=== PATIENT | male | born 1985 | race Caucasian/White ===

== ENCOUNTER 2018-09-26 09:46 | Outpatient (CLI) | payer MEDICAID, SELFPAY | END 2018-09-26 10:06 | PROVIDERS: Visit Provider Urology | DX: Z87.448 Personal history of other diseases of urinary system (principal) | CPT/HCPCS: 87077; 87086; 87186 ==

== ENCOUNTER 2024-01-28 16:31 | Emergency (ER) | payer SELFPAY ==
[2024-01-28] VITALS (27 sets, daily range): BP systolic 115–154; BP diastolic 79–112; PULSE 70–104; RESP 12–24; TEMP 37.2–37.6; O2SAT 97–99
--- NOTE | 2024-01-28 16:39 | W.ED.GENAD ---
Discharge Plan Disposition Patient Disposition: Home Condition: Stable Discharge Details Clinical Impression: Infected insect bite Primary Care Provider: None,None ED Provider: Dennis Silverman Home Meds and New Rx's Prescriptions: New doxycycline hyclate 100 mg tablet 100 mg PO BID 14 Days Qty: 28 0RF Discharge Instructions Instructions: Doxycycline (By mouth), Cellulitis (ED) Additional Instructions: You were seen in the emergency department for the infected bug bite on your right thigh, it is possibility that this is Lyme disease from a tick bite. We have sent a tick panel out should result in a number of days. Other than that it is an infected bug bite causing significant infection and I am placing on doxycycline. We loaded you on doxycycline this evening in the ER and provided you with 2 tablets to go, I have sent a further prescription for 2 more weeks to [facility] in [place]. If your Lyme test is positive you may need to continue for 21 or 28 days of antibiotics. Please use therapeutic dosing of Tylenol (acetamenophen) & Advil (ibuprofen) in an alternating fashion as follows: Take 1000mg of Tylenol every 6 hours without missing doses- that is 4 times per day. Retirement in between the Tylenol dosings, take 400-600mg of Advil also on a 6 hour schedule, that is also 4 times per day. The daily maximum dosing of Tylenol is 4000mg, and the daily maximum dosing of Advil is 2400mg. This is safe to do for weeks. Please note that some common cold medications & prescription pain medications may contain acetamenophen and you need to read OTC drug labels and factor that in to maximum daily dosings. We also took blood cultures to test for any infection in your bloodstream, if these result positive you will need to return for IV antibiotics. Please return for failure to improve, worsening symptoms like nausea vomiting or other body systems being affected. HPI General Date/Time Provider Initiated Documentation: 01/28/24 16:32. 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 Quality described as redness spreading outward around the bug bite, now having red streaking spreading up the groin, with radiation to mild fever, tingling distally, fatigue. Denies chest pain, denies knee swelling, denies nausea/vomiting, denies severe headache. Severity is described as moderate. Palliating factors include nothing specific attempted. Provoking factors include nothing specific. Patient not anticoagulated. Related Data Home Medications Medication Instructions Recorded Confirmed doxycycline hyclate 100 mg tablet 100 mg PO BID cellulitis 14 days 01/28/24 #28 tabs Previous Rx's Medication Instructions Recorded doxycycline hyclate 100 mg tablet 100 mg PO BID cellulitis 14 days 01/28/24 #28 tabs Allergies Allergy/AdvReac Type Severity Reaction Status Date / Time codeine AdvReac Mild Skin Rash Verified 01/28/24 16:38 General Stated Complaint: Cellulitis ERICK: 3 Review of Systems All systems reviewed & are unremarkable except as noted in HPI and below Exam Narrative Exam Narrative: GENERAL APPEARANCE: Well-nourished, non-toxic, awake and alert, atraumatic, no acute distress. SKIN: Warm, pink, dry, pinpoint macular bugbite 3 cm superior to R knee, circular erythema surrounding the bite about 8-10cm oval shaped with mild central clearing, no ecchymosis, +lymphadenitis spreading up medial thigh/groin, no knee swelling, no pain with passive ROM. HEAD: Normocephalic, atraumatic, normal hair distribution for gender/age. EYES: Pupils PERRLA, EOMs intact without nystagmus, normal conjunctiva, no exudates on lids/lashes. ENT: Nares patent, no circumoral cyanosis, no facial swelling NECK: Supple, trachea midline, painless cervical ROM. LUNGS/CHEST: Lungs CTA bilaterally, non-labored respirations, normal A/P diameter, symmetrical expansion, no chest wall deformity HEART (CV/PV): Regular rate and rhythm, tachycardic, no peripheral edema, no JVD. ABDOMEN: Soft, non-distended, no guarding. MSK: Normal ROM, no swelling/deformity to bilateral UEs or LEs, moving all extremities without weakness, no cyanosis, spine midline without tenderness, normal curvature. NEURO: Mental Status AAOx4 - alert to person, place, time, events No facial droop, no forehead involvement. Motor: No focal weakness - strength 5/5 in bilateral UEs and LEs, proximal and distal, symmetric. Sensory: sensation intact to light touch globally. Gait normal: patient ambulated without ataxia into ED room. PSYCH: euthymic, cooperative, pleasant, appropriate speech Course Vital Signs Vital signs: Vital Signs Temperature 37.6 C H 01/28/24 16:35 Pulse 104 H 01/28/24 16:35 Respiratory Rate 22 01/28/24 16:35 Blood Pressure 146/92 H 01/28/24 16:35 Pulse Oximetry 98 01/28/24 16:35 Temperature 37.6 C H 01/28/24 16:35 Temperature Source Skin 01/28/24 16:35 Pulse 104 H 01/28/24 16:35 Respiratory Rate 22 01/28/24 16:35 Respiratory Effort Normal, Non-Labored 01/28/24 16:38 Blood Pressure 146/92 H 01/28/24 16:35 Blood Pressure Position Sitting 01/28/24 16:35 Pulse Oximetry 98 01/28/24 16:35 Oxygen Delivery Method Room Air 01/28/24 16:35 Oxygen Flow Rate 0 01/28/24 16:35 Pain Level 5 01/28/24 16:35 Medical Decision Making This dictation utilizes [id number] dictation software and may contain unedited grammatical errors. 38 y/o M presents to ED today with a chief complaint of infected bug bite to R thigh, noticed over the weekend, with significant worsening- now having fever, redness spreading up the medial thigh, denies knee pain/swelling, no pain with passive ROM. Patient doesn't think the bite was a tick, but is unsure. Patients' medical history: negative, otherwise healthy. Family and social history: noncontributory, works outdoors as a residential roofer helper. Pertinent exam findings / vital signs include SKIN: Warm, pink, dry, pinpoint macular bugbite 3 cm superior to R knee, circular erythema surrounding the bite about 8-10cm oval shaped with mild central clearing, no ecchymosis, +lymphadenitis spreading up medial thigh/groin, no knee swelling, no pain with passive ROM. Differential / pathologies of concern include Tick Bite, Erythema Migrans, Cellulitis, Sepsis. Diagnostic studies of: -CBC, CMP, CRP, Lactate, Procalcitonin, Tick Panel, Blood Cx's. -CBC no leukocytosis -CMP benign -Initial Lactate 3.4 > reflex to Blood Cx's > repeat after sepsis bolus shows 1.5 -Procalcitonin negative -CRP neg -Tick panel pending -Blood Cx's pending Interventions of: -IVF NS 1L, 1g IV APAP, 15mg IV ketorlac, 100mg doxycycline IV. ED Course/Assessment/Plan: 38-year-old male presents with an infected tick bite with about a 8 to 10 cm mildly erythematous lesion with central clearing around it on his right thigh, this is suspicious for erythema migrans, initially concern for sepsis and treated with IV doxycycline to cover cellulitis and Lyme disease. His lactate improved with sepsis fluid bolus and has no leukocytosis, I counseled him on the possible need for further doxycycline should his tick panel returned positive for Lyme disease or other antibiotics for other tickborne illnesses. Otherwise we will cover for cellulitis due to infected bug bite with doxycycline which covers MRSA. I counseled on therapeutic dosing Tylenol and ibuprofen and strict return criteria for worsening symptoms despite treatment especially with fever, other body systems affected like nausea, vomiting, weakness. Findings not consistent with sepsis - possible lactate elev from dehydration, abscess. Disposition of Infected Insect Bite. Patient verbalized understanding of the plan and return to ED criteria and engaged in shared decision making. Medical Records Medical records reviewed: Yes I reviewed the patient's medical records. Lab Data Lab results reviewed: Yes I reviewed the patient's lab results. Labs: 01/28/24 17:18 Blood Blood Culture - Pending 01/28/24 16:56 Blood Blood Culture - Pending Laboratory Tests Range/Units 01/28/24 01/28/24 16:56 19:46 WBC (4.4-10.8) 10^3/uL 8.90 RBC (4.36-5.78) 10^6/uL 4.70 Hgb (13.5-17.5) g/dL 16.2 Hct (40.0-50.0) % 46.3 MCV (80-95) fL 99 H MCH (27.0-33.0) pg 34.5 H MCHC (32.0-36.0) % 35.0 RDW (11.8-14.1) % 12.8 Plt Count (130-400) 10^3/uL 275 MPV (8.0-11.0) fL 8.7 Immature Gran % % 0.1 Neutrophils % % 53.5 Lymphocytes % % 30.2 Monocytes % % 10.3 Eosinophils % % 5.1 Basophils % % 0.8 Nucleated RBC % (0.0-0.3) % 0.0 Absolute Neutrophils (1.2-6.7) 10^3/uL 4.76 Absolute Lymphocytes (1.2-3.4) 10^3/uL 2.69 Absolute Monocytes (0.1-0.8) 10^3/uL 0.92 H Absolute Eosinophils (0.0-0.7) 10^3/uL 0.45 Absolute Basophils (0.0-0.2) 10^3/uL 0.07 VBG Lactate (0.6-1.4) mmol/L 3.4 H* 1.5 H Sodium (136-145) mmol/L 137 Potassium (3.5-5.1) mmol/L 4.5 Chloride (98-107) mmol/L 101 Carbon Dioxide (21.0-32.0) mmol/L 20.5 L Anion Gap (3-11) mmol/L 15.5 H BUN (7-18) mg/dL 8 Creatinine (0.70-1.30) mg/dL 0.6 L Est GFR (CKD-EPI 2020) (mL/min/1.73m2) 125.15 Glucose (74-106) mg/dL 98 Calcium (8.5-10.1) mg/dL 9.0 Total Bilirubin (0.2-1.0) mg/dL 0.5 AST (15-37) U/L 33 ALT (16-63) U/L 26 Alkaline Phosphatase (46-116) U/L 66 C-Reactive Protein (<or=0.5) mg/dL < 0.50 Total Protein (6.4-8.2) g/dL 8.1 Albumin (3.4-5.0) g/dL 4.1 Procalcitonin ng/mL < 0.1 Quality:SDOH Health Related Social Needs: No Data to Display PFSH All Active Problems (Updated 01/28/24 @ 20:02 by ЕКАТЕРИНА Hodges) Infected insect bite (Acute) History of surgery (Chronic) a. Meatus reconstruction Urinary retention (Acute 12/29/13) Social History Smoking/Tobacco Use Status: Current every day Tobacco Type: cigarettes Smoking risk assessment performed?: Yes Alcohol Intake: current Alcohol Intake frequency: holidays/special occasions only Drug use: Daily Substance use type: does not use and marijuana Do you feel safe at home: Yes Do you feel safe in your relationship?: Yes
[2024-01-28 17:06] LABS: Abs Immature Grans 0.01 10^3/uL (0.0-0.06); Absolute Basophil Count 0.07 10^3/uL (0.0-0.2); Absolute Eosinophil Count 0.45 10^3/uL (0.0-0.7); Absolute Lymphocyte Count 2.69 10^3/uL (1.2-3.4); Absolute Monocyte Count 0.92 10^3/uL (0.1-0.8); Absolute Neutrophil Count 4.76 10^3/uL (1.2-6.7); Basophils % 0.8 %; Eosinophils % 5.1 %; HCT 46.3 % (40.0-50.0); HGB 16.2 g/dL (13.5-17.5); Immature Grans % 0.1 %; Lymphocytes % 30.2 %; MCH 34.5 pg (27.0-33.0); MCV 99 fL (80-95); MPV 8.7 fL (8.0-11.0); Monocytes % 10.3 %; Neutrophils % 53.5 %; Platelet Count 275 10^3/uL (130-400); RDW 12.8 % (11.8-14.1); RDW-SD 46.8 fL
[2024-01-28 17:09] LABS: Lactate 3.4 mmol/L (0.6-1.4)
[2024-01-28] MEDS: ACETAMINOPHEN 1,000 MG/100 ML BTL 400 MG IVPB (17:15)
[2024-01-28] MEDS: Normal Saline 1,000 ML 1000 ML IV ×2 (17:17→18:46)
[2024-01-28] MEDS: Ketorolac 15 MG/ML VIAL IVP (17:17)
[2024-01-28 17:29] LABS: ALT 26 U/L (16-63); AST 33 U/L (15-37); Albumin 4.1 g/dL (3.4-5.0); Alkaline Phosphatase 66 U/L (46-116); Anion Gap 15.5 mmol/L (3-11); BUN 8 mg/dL (7-18); Bilirubin, Total 0.5 mg/dL (0.2-1.0); C-Reactive Protein < 0.50 mg/dL (<or=0.5); CO2 20.5 mmol/L (21.0-32.0); CREATININE 0.6 mg/dL (0.70-1.30); Chloride 101 mmol/L (98-107); Estimated GFR 125.15 (mL/min/1.73m2); Glucose 98 mg/dL (74-106); Potassium 4.5 mmol/L (3.5-5.1); Sodium 137 mmol/L (136-145); Total Protein 8.1 g/dL (6.4-8.2)
[2024-01-28] MEDS: DOXYCYCLINE 100 MG in Normal Saline 100 ML IVPB (17:36)
[2024-01-28 17:44] LABS: Procalcitonin < 0.1 ng/mL
[2024-01-28 19:49] LABS: Lactate 1.5 mmol/L (0.6-1.4)
[2024-01-28] MEDS: Doxycycline Hyclate 100 MG, 2 CAPS/BTL PO (20:19)
[2024-01-30 09:58] LABS: Lyme Ab w Rflx to Lyme Confirm Negative (Negative)
[2024-02-01 20:05] LABS: Anaplasma phagocytophilum Negative (Negative); B. miyamotoi PCR Negative (Negative); Babesia divergens/MO-1 Negative (Negative); Babesia duncani Negative (Negative); Babesia microti Negative (Negative); Ehrlichia chaffeensis Negative (Negative); Ehrlichia ewingii/canis Negative (Negative); Ehrlichia muris eauclairensis Negative (Negative)
== END 2024-01-28 20:21 | disposition home or self-care (01) ==
PROVIDERS: Emergency Provider Physician Assistant
DX: S70.361A Insect bite (nonvenomous), right thigh, initial encounter (principal); L08.9 Local infection of the skin and subcutaneous tissue, unspecified; W57.XXXA Bitten or stung by nonvenomous insect and other nonvenomous arthropods, initial encounter
CPT/HCPCS: 36415; 80053; 84145; 87040; 87798; 96361; 96365; 96367; 96375; 99284; 83605; 85025; 86140; 86618; 99283; J0131; J1885